=== PATIENT | male | born 1965 ===

== ENCOUNTER 2022-03-14 06:00 | Day surgery (SDC) | payer OTHER ==
[~2022-03-14] VITALS: Ht 165.1 cm; Wt 70.3 kg
== END 2022-03-14 11:45 | disposition home or self-care (01) ==
LOC: CIR.AMB 06:00
PROVIDERS: ATTEND Orthopaedic Surgery Hand Surgery
DX: M19.141 Post-traumatic osteoarthritis, right hand (principal); E16.2 Hypoglycemia, unspecified; Z20.822 Contact with and (suspected) exposure to COVID-19